=== PATIENT | female | born 1950 | race Caucasian/White ===

== ENCOUNTER 2016-06-28 14:09 | Outpatient (RCR) | payer MEDICARE, OTHER ==
--- OUTSIDE RECORDS SUMMARY | 2016-04-26 15:02 | XMS REPORT | Continuity of Care Document ---
Author Author [facility] Organization [facility] Address Unknown Phone Unavailable Support Name Relationship Address Phone LUIS DANIEL GÓMEZ MD Caregiver [facility] [address] [place] [address] LILLI WYNN MD Caregiver [facility] [address] [place] [address] [place] [address] Insurance Providers Payer Name Policy Number Subscriber Name Relationship Self Pay Pending Dariana Apprv [id number] Darya Bella 18 Self / Same As Patient Advance Directives Directive Response Recorded Date/Time Advance Directives No 08/27/11 9:15am Organ Donor Yes 08/27/11 9:15am Problems No known problems or medical conditions. Medications Medication Dose Route Sig Days/Qty Instructions Order Date Discontinued Date Status Meloxicam 7.5 Mg PO DAILY 08/27/11 Active Hydroxyurea 500 Mg PO DAILY 08/27/11 Active Tetracycline Hcl 250 Mg PO DAILY 08/27/11 Active [Triamterene] PO DAILY 08/27/11 Active Social History Social History Problem Response Recorded Date/Time Recent Foreign Travel [place] 09/07/2014 3:27pm Hospital Discharge Instructions No hospital discharge instructions. Plan of Care No plan of care. Functional Status No functional status results. Allergies, Adverse Reactions, Alerts Allergen Type Severity Reaction Status Last Updated tetracycline ([id number]) Allergy Mild Active 10/03/05 Immunizations No immunization records. Vital Signs No known vital signs results. Results Laboratory Results Test Name Result Units Flags Reference Collection Date/Time Result Date/ Time Comments White Blood Count 5.4 10^3/uL 4.3-11.0 11/29/2014 3:00pm 11/29/2014 3: 08pm Red Blood Count 4.24 10^6/uL L 4.35-5.85 11/29/2014 3:00pm 11/29/2014 3: 08pm Hemoglobin 15.4 G/DL 11.5-16.0 11/29/2014 3:00pm 11/29/2014 3:08pm Hematocrit 43 % 35-52 11/29/2014 3:00pm 11/29/2014 3:08pm Mean Corpuscular Volume 102 FL H 80-99 11/29/2014 3:00pm 11/29/2014 3: 08pm Mean Corpuscular Hemoglobin 36 PG H 25-34 11/29/2014 3:00pm 11/29/2014 3: 08pm Mean Corpuscular Hemoglobin Concent 36 G/DL 32-36 11/29/2014 3:00pm 01/2015 3:08pm Red Cell Distribution Width 14.3 % 10.0-14.5 11/29/2014 3:00pm 2014 3:08pm Platelet Count 318 10^3/uL 130-400 11/29/2014 3:00pm 11/29/2014 3:08pm Mean Platelet Volume 8.4 FL 7.4-10.4 11/29/2014 3:00pm 11/29/2014 3: 08pm Neutrophils (%) (Auto) 51 % 42-75 11/29/2014 3:00pm 11/29/2014 3:08pm Lymphocytes (%) (Auto) 35 % 12-44 11/29/2014 3:00pm 11/29/2014 3:08pm Monocytes (%) (Auto) 9 % 0-12 11/29/2014 3:00pm 11/29/2014 3:08pm Eosinophils (%) (Auto) 3 % 0-10 11/29/2014 3:00pm 11/29/2014 3:08pm Basophils (%) (Auto) 1 % 0-10 11/29/2014 3:00pm 11/29/2014 3:08pm Neutrophils # (Auto) 2.8 X 10^3 1.8-7.8 11/29/2014 3:00pm 11/29/2014 3: 08pm Lymphocytes # (Auto) 1.9 X 10^3 1.0-4.0 11/29/2014 3:00pm 11/29/2014 3: 08pm Monocytes # (Auto) 0.5 X 10^3 0.0-1.0 11/29/2014 3:00pm 11/29/2014 3: 08pm Eosinophils # (Auto) 0.2 10^3/uL 0.0-0.3 11/29/2014 3:00pm 11/29/2014 3 :08pm Basophils # (Auto) 0.1 10^3/uL 0.0-0.1 11/29/2014 3:00pm 11/29/2014 3: 08pm Sodium Level 140 MMOL/L 135-145 11/29/2014 3:00pm 11/29/2014 3:35pm Potassium Level 4.0 MMOL/L 3.6-5.0 11/29/2014 3:00pm 11/29/2014 3:35pm Chloride Level 105 MMOL/L 98-107 11/29/2014 3:00pm 11/29/2014 3:35pm Carbon Dioxide Level 25 MMOL/L 21-32 11/29/2014 3:00pm 11/29/2014 3: 35pm Blood Urea Nitrogen 24 MG/DL H 7-18 11/29/2014 3:00pm 11/29/2014 3:35pm Creatinine 1.10 MG/DL 0.60-1.30 11/29/2014 3:00pm 11/29/2014 3:35pm BUN/Creatinine Ratio 22 11/29/2014 3:00pm 11/29/2014 3:35pm Estimat Glomerular Filtration Rate 50 11/29/2014 3:00pm 11/29/2014 3:35pm GFR INTERPRETIVE DATA UNITS FOR ESTIMATED GFR (eGFR): mL/min/1.73 M2 REFERENCE RANGE FOR ESTIMATED GFR (eGFR) eGFR NORMAL eGFR >60 MODERATELY DECREASED eGFR 30-59 SEVERLY DECREASED eGFR 15-29 KIDNEY FAILURE <15 (OR DIALYSIS) Glucose Level 120 MG/DL H 70-105 11/29/2014 3:00pm 11/29/2014 3:35pm Calcium Level 9.8 MG/DL 8.5-10.1 11/29/2014 3:00pm 11/29/2014 3:35pm Total Bilirubin 0.6 MG/DL 0.1-1.0 11/29/2014 3:00pm 11/29/2014 3:35pm Alkaline Phosphatase 72 U/L 40-136 11/29/2014 3:00pm 11/29/2014 3:35pm Aspartate Amino Transf (AST/SGOT) 41 U/L H 5-34 11/29/2014 3:00pm 2014 3:35pm Alanine Aminotransferase (ALT/SGPT) 34 U/L 0-55 11/29/2014 3:00pm 11/29 3:35pm Lactate Dehydrogenase 304 U/L H 125-220 11/29/2014 3:00pm 11/29/2014 3: 35pm Total Protein 8.1 G/DL 6.4-8.2 11/29/2014 3:00pm 11/29/2014 3:35pm Albumin 4.3 G/DL 3.2-4.5 11/29/2014 3:00pm 11/29/2014 3:35pm Procedures No known history of procedures. Encounters Encounter Location Date/Time Discharged Recurring [facility] 11/29/14 2:52pm
[2016-04-26 15:09] LABS: BASOPHILS # (AUTO) 0.1 10^3/uL (0.0-0.1); BASOPHILS % (AUTO) 1 % (0-10); EOSINOPHILS # (AUTO) 0.1 10^3/uL (0.0-0.3); EOSINOPHILS % (AUTO) 3 % (0-10); LYMPHOCYTES # (AUTO) 1.8 X 10^3 (1.0-4.0); LYMPHOCYTES % (AUTO) 35 % (12-44); MEAN CORPUSCULAR HEMOGLOBIN 37 PG (25-34); MEAN CORPUSCULAR HGB CONC 36 G/DL (32-36); MEAN CORPUSCULAR VOLUME 104 FL (80-99); MEAN PLATELET VOLUME 8.4 FL (7.4-10.4); MONOCYTES # (AUTO) 0.5 X 10^3 (0.0-1.0); MONOCYTES % (AUTO) 11 % (0-12); NEUTROPHILS # (AUTO) 2.5 X 10^3 (1.8-7.8); NEUTROPHILS % (AUTO) 50 % (42-75); PLATELET COUNT 289 10^3/uL (130-400); RED BLOOD COUNT 4.06 10^6/uL (4.35-5.85); RED CELL DISTRIBUTION WIDTH 14.1 % (10.0-14.5)
[2016-04-26 15:39] LABS: ALBUMIN 4.3 G/DL (3.2-4.5); BILIRUBIN,TOTAL 0.7 MG/DL (0.1-1.0); CALCIUM 9.6 MG/DL (8.5-10.1); CREATININE SERUM 1.09 MG/DL (0.60-1.30); POTASSIUM 4.3 MMOL/L (3.6-5.0); TOTAL PROTEIN 7.3 G/DL (6.4-8.2)
[~2016-06-28 14:09] MED LIST: CYCL10TA9 PO; HYDR500C PO; MELO7.5T PO; METH4TAB PO; TETR250C3 PO; TRAM-42 PO; TRAM50TA2 PO; TRIAMTERENE PO; [UNRECOGNIZED DRUG - CODE] PO
[2016-06-28 14:39] LABS: BASOPHILS # (AUTO) 0.1 10^3/uL (0.0-0.1); BASOPHILS % (AUTO) 1 % (0-10); EOSINOPHILS # (AUTO) 0.1 10^3/uL (0.0-0.3); EOSINOPHILS % (AUTO) 3 % (0-10); LYMPHOCYTES # (AUTO) 1.7 X 10^3 (1.0-4.0); LYMPHOCYTES % (AUTO) 35 % (12-44); MEAN CORPUSCULAR HEMOGLOBIN 36 PG (25-34); MEAN CORPUSCULAR HGB CONC 35 G/DL (32-36); MEAN CORPUSCULAR VOLUME 104 FL (80-99); MEAN PLATELET VOLUME 8.3 FL (7.4-10.4); MONOCYTES # (AUTO) 0.5 X 10^3 (0.0-1.0); MONOCYTES % (AUTO) 9 % (0-12); NEUTROPHILS # (AUTO) 2.6 X 10^3 (1.8-7.8); NEUTROPHILS % (AUTO) 53 % (42-75); PLATELET COUNT 266 10^3/uL (130-400); RED BLOOD COUNT 3.88 10^6/uL (4.35-5.85); RED CELL DISTRIBUTION WIDTH 14.8 % (10.0-14.5); WHITE BLOOD COUNT 4.9 10^3/uL (4.3-11.0)
[2016-06-28 15:00] LABS: BILIRUBIN,TOTAL 0.5 MG/DL (0.1-1.0); CALCIUM 8.9 MG/DL (8.5-10.1); POTASSIUM 4.2 MMOL/L (3.6-5.0); TOTAL PROTEIN 6.7 G/DL (6.4-8.2)
== END 2016-07-25 | disposition home or self-care (01) ==
LOC: ONC 14:09
PROVIDERS: ATTEND Internal Medicine Hematology & Oncology
DX: D45 Polycythemia vera (principal); I10 Essential (primary) hypertension; J32.9 Chronic sinusitis, unspecified; Z87.891 Personal history of nicotine dependence; Z79.899 Other long term (current) drug therapy
CPT/HCPCS: 36415; 80053; 82232; 83615; 85025; 99213

== ENCOUNTER 2016-11-01 12:34 | Outpatient (RCR) | payer MEDICARE, OTHER ==
--- OUTSIDE RECORDS SUMMARY | 2016-08-30 14:04 | XMS REPORT | Continuity of Care Document ---
Author Author [facility] Organization [facility] Address Unknown Phone Unavailable Care Team Providers [facility] Nurse Name Role Phone VALENTINA KARIMI MD PCP Insurance Providers Payer Name Policy Number Subscriber Name Relationship [employer] [id number] Darya Bella 18 Self / Same As Patient Self Pay Pending [facility] Apprv [id number] Darya Bella 18 Self / Same As Patient Advance Directives Directive Response Recorded Date/Time Advance Directives No 05/15/16 3:07pm Organ Donor Yes 05/15/16 3:07pm Resuscitation Status Full Code 05/15/16 3:07pm Chief Complaint and Reason for Visit Chief Complaint Upper Extremity Reason for Visit Muscle strain of left forearm Hypertension Problems Active Problems Medical Problem Onset Date Status Hypertension Unknown Acute Lateral epicondylitis Unknown Acute Muscle strain of left forearm Unknown Acute Medications Current Home Medications Medication Dose Units Route Directions Days/Qty Instructions Start Date Meloxicam 7.5 Mg 7.5 Mg Oral Daily 08/27/11 Hydroxyurea 500 Mg 500 Mg Oral Daily 08/27/11 [Triamterene] Oral Daily 08/27/11 Codeine/Butalbital/Asa/Caffein 1 Each 1 Each Oral As Needed 09/14/15 Cyclobenzaprine Hcl 10 Mg 10 Mg Oral Every 8HRS 15 09/14/15 Tramadol Hcl 50 Mg 50 Mg Oral Every 4HRS 20 09/14/15 Tramadol Hcl 50 Mg 50 Mg Oral Every 4HRS as needed for Pain 20 Cyclobenzaprine Hcl 10 Mg 10 Mg Oral Every 8HRS as needed for Spasms 10 05/15/16 Past Home Medications Medication Directions Ordered Status Tetracycline Hcl 250 Mg Capsule, 250 Mg Oral Daily 08/27/11 Discontinued Methylprednisolone 4 Mg Tab.ds.pk, 4 Mg Oral As Directed 09/06/15 Discontinued Social History Social History Problem Response Recorded Date/Time Alcohol Use Rarely Uses 09/14/2015 4:26pm Recreational Drug Use No 09/14/2015 4:26pm Recent Foreign Travel No 05/15/2016 3:03pm Recent Infectious Disease Exposure No 05/15/2016 3:03pm Hospitalization with Isolation Denies 05/15/2016 3:03pm Smoking Status Never a Smoker 05/15/2016 3:07pm Do you dip or chew tobacco? No 09/14/2015 4:26pm Recent Hopitalizations No 05/15/2016 3:07pm Hospitalization with Isolation Denies 05/15/2016 3:03pm Query Response Start Date Stop Date Smoking Status Never a Smoker 08/22/2008 Hospital Discharge Instructions No hospital discharge instructions. Plan of Care Discharge Date 05/15/16 4:40pm Disposition 01 HOME, SELF-CARE Condition at Discharge Improved Instructions/Education Provided Muscle Strain (DC) Prescriptions See Medication Section Referrals VALENTINA KARIMI MD - Primary Care Physician Additional Instructions/Education All discharge instructions reviewed with patient and/or family. Voiced understanding. Medications as instructed. Tylenol extra strength [id number] as directed for pain. Ibuprofen 800 mg by mouth every 8 hours as needed for pain. Elevate the left forearm on pillows. Ice pack for 20 minute intervals 6 times daily for 3 days. Then heating pad or pack as needed for pain. Activity as tolerated. Follow-up with your family practitioner for recheck of blood pressure. Call tomorrow for appointment time. Return to the emergency department for worsened symptoms or any other concerns. Functional Status No functional status results. Allergies, Adverse Reactions, Alerts Allergen Type Severity Reaction Status Last Updated tetracycline ([id number]) Allergy Mild Active 10/03/05 Immunizations No immunization records. Vital Signs Acute Vital Signs Vital Response Date/Time Temperature (Fahrenheit) 97.5 degrees F (97.6 - 99.5) 05/15/2016 4:32pm Temperature (Calculated Celsius) 36.26665 degrees C (36.4 - 37.5) 05/15/2016 4:32pm Temperature Source Temporal 05/15/2016 4:32pm Pulse Rate (adult) 70 bpm (60 - 90) 05/15/2016 3:03pm Respiratory Rate 16 bpm (12 - 24) 05/15/2016 3:03pm O2 Sat by Pulse Oximetry 98 % (88 - 100) 05/15/2016 3:03pm Blood Pressure 172/116 mm Hg 05/15/2016 3:03pm Blood Pressure Mean 134 mm Hg 05/15/2016 3:03pm Pain Numeric Pain Scale 5-Moderate Pain 05/15/2016 4:32pm Height (Feet) 5 feet 05/15/2016 3:03pm Height (Inches) 2 inches 05/15/2016 3:03pm Height (Calculated Centimeters) 157.413431 cm 05/15/2016 3:03pm Weight (Pounds) 160 pounds 05/15/2016 3:03pm Weight (Calculated Kilograms) 72.292413 kilograms 05/15/2016 3:03pm Capillary Refill Capillary Refill Less Than 3 Seconds 05/15/2016 3:03pm Height 5 ft 2 in Weight 160 lb Body Mass Index 29.3 kg/m^2 Results Laboratory Results Test Name Result Units Flags Reference Collection Date/Time Result Date/ Time Comments White Blood Count 5.0 10^3/uL 4.3-11.0 04/26/2016 3:06pm 04/26/2016 3: 10pm Red Blood Count 4.06 10^6/uL L 4.35-5.85 04/26/2016 3:06pm 04/26/2016 3: 10pm Hemoglobin 15.1 G/DL 11.5-16.0 04/26/2016 3:06pm 04/26/2016 3:10pm Hematocrit 42 % 35-52 04/26/2016 3:06pm 04/26/2016 3:10pm Mean Corpuscular Volume 104 FL H 80-99 04/26/2016 3:06pm 04/26/2016 3: 10pm Mean Corpuscular Hemoglobin 37 PG H 25-34 04/26/2016 3:06pm 04/26/2016 3: 10pm Mean Corpuscular Hemoglobin Concent 36 G/DL 32-36 04/26/2016 3:06pm 08/2015 3:10pm Red Cell Distribution Width 14.1 % 10.0-14.5 04/26/2016 3:06pm 2015 3:10pm Platelet Count 289 10^3/uL 130-400 04/26/2016 3:06pm 04/26/2016 3:10pm Mean Platelet Volume 8.4 FL 7.4-10.4 04/26/2016 3:06pm 04/26/2016 3: 10pm Neutrophils (%) (Auto) 50 % 42-75 04/26/2016 3:06pm 04/26/2016 3:10pm Lymphocytes (%) (Auto) 35 % 12-44 04/26/2016 3:06pm 04/26/2016 3:10pm Monocytes (%) (Auto) 11 % 0-12 04/26/2016 3:06pm 04/26/2016 3:10pm Eosinophils (%) (Auto) 3 % 0-10 04/26/2016 3:06pm 04/26/2016 3:10pm Basophils (%) (Auto) 1 % 0-10 04/26/2016 3:06pm 04/26/2016 3:10pm Neutrophils # (Auto) 2.5 X 10^3 1.8-7.8 04/26/2016 3:06pm 04/26/2016 3: 10pm Lymphocytes # (Auto) 1.8 X 10^3 1.0-4.0 04/26/2016 3:06pm 04/26/2016 3: 10pm Monocytes # (Auto) 0.5 X 10^3 0.0-1.0 04/26/2016 3:06pm 04/26/2016 3: 10pm Eosinophils # (Auto) 0.1 10^3/uL 0.0-0.3 04/26/2016 3:06pm 04/26/2016 3 :10pm Basophils # (Auto) 0.1 10^3/uL 0.0-0.1 04/26/2016 3:06pm 04/26/2016 3: 10pm Sodium Level 139 MMOL/L 135-145 04/26/2016 3:06pm 04/26/2016 3:41pm Potassium Level 4.3 MMOL/L 3.6-5.0 04/26/2016 3:06pm 04/26/2016 3:41pm Chloride Level 102 MMOL/L 98-107 04/26/2016 3:06pm 04/26/2016 3:41pm Carbon Dioxide Level 29 MMOL/L 21-32 04/26/2016 3:06pm 04/26/2016 3: 41pm Anion Gap 8 MMOL/L 5-14 04/26/2016 3:06pm 04/26/2016 3:41pm Blood Urea Nitrogen 26 MG/DL H 7-18 04/26/2016 3:06pm 04/26/2016 3:41pm Creatinine 1.09 MG/DL 0.60-1.30 04/26/2016 3:06pm 04/26/2016 3:41pm BUN/Creatinine Ratio 24 04/26/2016 3:06pm 04/26/2016 3:41pm Estimat Glomerular Filtration Rate 50 04/26/2016 3:06pm 04/26/2016 3:41pm GFR INTERPRETIVE DATA UNITS FOR ESTIMATED GFR (eGFR): mL/min/1.73 M2 REFERENCE RANGE FOR ESTIMATED GFR (eGFR) eGFR NORMAL eGFR >60 MODERATELY DECREASED eGFR 30-59 SEVERLY DECREASED eGFR 15-29 KIDNEY FAILURE <15 (OR DIALYSIS) Glucose Level 116 MG/DL H 70-105 04/26/2016 3:06pm 04/26/2016 3:41pm Calcium Level 9.6 MG/DL 8.5-10.1 04/26/2016 3:06pm 04/26/2016 3:41pm Total Bilirubin 0.7 MG/DL 0.1-1.0 04/26/2016 3:06pm 04/26/2016 3:41pm Alkaline Phosphatase 71 U/L 40-136 04/26/2016 3:06pm 04/26/2016 3:41pm Aspartate Amino Transf (AST/SGOT) 29 U/L 5-34 04/26/2016 3:06pm 2015 3:41pm Alanine Aminotransferase (ALT/SGPT) 37 U/L 0-55 04/26/2016 3:06pm 04/26 3:41pm Lactate Dehydrogenase 294 U/L H 125-220 04/26/2016 3:06pm 04/26/2016 3: 41pm Total Protein 7.3 G/DL 6.4-8.2 04/26/2016 3:06pm 04/26/2016 3:41pm Albumin 4.3 G/DL 3.2-4.5 04/26/2016 3:06pm 04/26/2016 3:41pm Cvil-3-Zgxfpypzoosbj 2.93 mg/L H 0.00-1.85 04/26/2016 3:06pm 04/27/2016 7 :15am Test performed at [email or web address]] [facility] Lab, CLIA# [id number] [address] [facility] [place] [address] Procedures No known history of procedures. Encounters Encounter Location Arrival/Admit Date Discharge/Depart Date Attending Provider Departed Emergency Room [facility] 05/15/16 2:48pm 05/15 4:40pm KENNEDY CHANG Registered Clinic [facility] 05/04/16 1:17pm LUIS DANIEL GÓMEZ MD Registered Recurring [facility] 04/26/16 2:59pm LUIS DANIEL GÓMEZ MD Recent Diagnosis
[2016-08-30 14:07] LABS: BASOPHILS # (AUTO) 0.1 10^3/uL (0.0-0.1); BASOPHILS % (AUTO) 1 % (0-10); EOSINOPHILS # (AUTO) 0.3 10^3/uL (0.0-0.3); EOSINOPHILS % (AUTO) 5 % (0-10); LYMPHOCYTES # (AUTO) 1.5 X 10^3 (1.0-4.0); LYMPHOCYTES % (AUTO) 29 % (12-44); MEAN CORPUSCULAR HEMOGLOBIN 37 PG (25-34); MEAN CORPUSCULAR HGB CONC 37 G/DL (32-36); MEAN CORPUSCULAR VOLUME 101 FL (80-99); MEAN PLATELET VOLUME 8.4 FL (7.4-10.4); MONOCYTES # (AUTO) 0.6 X 10^3 (0.0-1.0); MONOCYTES % (AUTO) 12 % (0-12); NEUTROPHILS # (AUTO) 2.8 X 10^3 (1.8-7.8); NEUTROPHILS % (AUTO) 53 % (42-75); PLATELET COUNT 270 10^3/uL (130-400); RED BLOOD COUNT 4.05 10^6/uL (4.35-5.85); RED CELL DISTRIBUTION WIDTH 14.4 % (10.0-14.5); WHITE BLOOD COUNT 5.2 10^3/uL (4.3-11.0)
[2016-08-30 15:17] LABS: ALBUMIN 4.1 G/DL (3.2-4.5); BILIRUBIN,TOTAL 0.9 MG/DL (0.1-1.0); CALCIUM 9.3 MG/DL (8.5-10.1); CREATININE SERUM 0.97 MG/DL (0.60-1.30); POTASSIUM 3.6 MMOL/L (3.6-5.0); TOTAL PROTEIN 7.1 G/DL (6.4-8.2)
[2016-11-01 13:09] LABS: BASOPHILS # (AUTO) 0.1 10^3/uL (0.0-0.1); BASOPHILS % (AUTO) 1 % (0-10); EOSINOPHILS # (AUTO) 0.2 10^3/uL (0.0-0.3); EOSINOPHILS % (AUTO) 3 % (0-10); LYMPHOCYTES # (AUTO) 1.8 X 10^3 (1.0-4.0); LYMPHOCYTES % (AUTO) 37 % (12-44); MEAN CORPUSCULAR HEMOGLOBIN 36 PG (25-34); MEAN CORPUSCULAR HGB CONC 35 G/DL (32-36); MEAN CORPUSCULAR VOLUME 104 FL (80-99); MEAN PLATELET VOLUME 8.4 FL (7.4-10.4); MONOCYTES # (AUTO) 0.5 X 10^3 (0.0-1.0); MONOCYTES % (AUTO) 10 % (0-12); NEUTROPHILS # (AUTO) 2.3 X 10^3 (1.8-7.8); NEUTROPHILS % (AUTO) 48 % (42-75); PLATELET COUNT 289 10^3/uL (130-400); RED BLOOD COUNT 3.99 10^6/uL (4.35-5.85); RED CELL DISTRIBUTION WIDTH 14.4 % (10.0-14.5); WHITE BLOOD COUNT 4.8 10^3/uL (4.3-11.0)
[2016-11-01 14:07] LABS: ALBUMIN 3.9 G/DL (3.2-4.5); BILIRUBIN,TOTAL 0.8 MG/DL (0.1-1.0); CALCIUM 9.2 MG/DL (8.5-10.1); CREATININE SERUM 1.02 MG/DL (0.60-1.30); POTASSIUM 3.9 MMOL/L (3.6-5.0)
== END 2016-11-28 | disposition home or self-care (01) ==
LOC: ONC 12:34
PROVIDERS: ATTEND Internal Medicine Hematology & Oncology
DX: D45 Polycythemia vera (principal); I10 Essential (primary) hypertension; J32.9 Chronic sinusitis, unspecified; Z87.891 Personal history of nicotine dependence; Z79.899 Other long term (current) drug therapy
CPT/HCPCS: 36415; 80053; 83615; 85025; 99213

== ENCOUNTER 2017-01-03 14:13 | Outpatient (RCR) | payer MEDICARE, OTHER ==
[2017-01-03 14:16] LABS: BASOPHILS # (AUTO) 0.1 10^3/uL (0.0-0.1); BASOPHILS % (AUTO) 1 % (0-10); EOSINOPHILS # (AUTO) 0.1 10^3/uL (0.0-0.3); EOSINOPHILS % (AUTO) 3 % (0-10); LYMPHOCYTES # (AUTO) 1.8 X 10^3 (1.0-4.0); LYMPHOCYTES % (AUTO) 40 % (12-44); MEAN CORPUSCULAR HEMOGLOBIN 37 PG (25-34); MEAN CORPUSCULAR HGB CONC 35 G/DL (32-36); MEAN CORPUSCULAR VOLUME 105 FL (80-99); MEAN PLATELET VOLUME 8.6 FL (7.4-10.4); MONOCYTES # (AUTO) 0.5 X 10^3 (0.0-1.0); MONOCYTES % (AUTO) 10 % (0-12); NEUTROPHILS # (AUTO) 2.1 X 10^3 (1.8-7.8); NEUTROPHILS % (AUTO) 46 % (42-75); PLATELET COUNT 301 10^3/uL (130-400); RED BLOOD COUNT 3.83 10^6/uL (4.35-5.85); RED CELL DISTRIBUTION WIDTH 15.1 % (10.0-14.5); WHITE BLOOD COUNT 4.5 10^3/uL (4.3-11.0)
[2017-01-03 14:55] LABS: ALBUMIN 3.9 GM/DL (3.2-4.5); BILIRUBIN,TOTAL 0.7 MG/DL (0.1-1.0); CREATININE SERUM 1.1 MG/DL (0.60-1.30); POTASSIUM 3.8 MMOL/L (3.6-5.0); TOTAL PROTEIN 7.3 GM/DL (6.4-8.2)
== END 2017-02-20 09:37 | disposition home or self-care (01) ==
LOC: ONC 14:13
PROVIDERS: ATTEND Internal Medicine Hematology & Oncology
DX: D45 Polycythemia vera (principal); I10 Essential (primary) hypertension; J32.9 Chronic sinusitis, unspecified; Z87.891 Personal history of nicotine dependence; Z79.899 Other long term (current) drug therapy
CPT/HCPCS: 36415; 80053; 83615; 85025; 99213

== ENCOUNTER 2017-03-20 08:10 | Outpatient (RCR) | payer MEDICARE, OTHER ==
[2017-02-20 10:17] LABS: BASOPHILS # (AUTO) 0.1 10^3/uL (0.0-0.1); BASOPHILS % (AUTO) 2 % (0-10); EOSINOPHILS # (AUTO) 0.1 10^3/uL (0.0-0.3); EOSINOPHILS % (AUTO) 2 % (0-10); LYMPHOCYTES # (AUTO) 1.9 X 10^3 (1.0-4.0); LYMPHOCYTES % (AUTO) 38 % (12-44); MEAN CORPUSCULAR HEMOGLOBIN 38 PG (25-34); MEAN CORPUSCULAR HGB CONC 36 G/DL (32-36); MEAN CORPUSCULAR VOLUME 104 FL (80-99); MEAN PLATELET VOLUME 8.9 FL (7.4-10.4); MONOCYTES # (AUTO) 0.5 X 10^3 (0.0-1.0); MONOCYTES % (AUTO) 10 % (0-12); NEUTROPHILS # (AUTO) 2.4 X 10^3 (1.8-7.8); NEUTROPHILS % (AUTO) 48 % (42-75); PLATELET COUNT 291 10^3/uL (130-400); RED BLOOD COUNT 4.02 10^6/uL (4.35-5.85); WHITE BLOOD COUNT 4.9 10^3/uL (4.3-11.0)
[2017-02-20 10:29] LABS: ALBUMIN 4.2 GM/DL (3.2-4.5); CALCIUM 9.3 MG/DL (8.5-10.1); CREATININE SERUM 1.12 MG/DL (0.60-1.30); POTASSIUM 4.3 MMOL/L (3.6-5.0); TOTAL PROTEIN 7.5 GM/DL (6.4-8.2)
[2017-03-20 08:28] LABS: BASOPHILS # (AUTO) 0.1 10^3/uL (0.0-0.1); BASOPHILS % (AUTO) 1 % (0-10); EOSINOPHILS # (AUTO) 0.1 10^3/uL (0.0-0.3); EOSINOPHILS % (AUTO) 2 % (0-10); LYMPHOCYTES # (AUTO) 1.5 X 10^3 (1.0-4.0); LYMPHOCYTES % (AUTO) 35 % (12-44); MEAN CORPUSCULAR HEMOGLOBIN 37 PG (25-34); MEAN CORPUSCULAR HGB CONC 35 G/DL (32-36); MEAN CORPUSCULAR VOLUME 105 FL (80-99); MEAN PLATELET VOLUME 8.8 FL (7.4-10.4); MONOCYTES # (AUTO) 0.4 X 10^3 (0.0-1.0); MONOCYTES % (AUTO) 10 % (0-12); NEUTROPHILS # (AUTO) 2.2 X 10^3 (1.8-7.8); NEUTROPHILS % (AUTO) 52 % (42-75); PLATELET COUNT 243 10^3/uL (130-400); RED BLOOD COUNT 4.04 10^6/uL (4.35-5.85); RED CELL DISTRIBUTION WIDTH 14.1 % (10.0-14.5); WHITE BLOOD COUNT 4.3 10^3/uL (4.3-11.0)
[2017-03-20 08:47] LABS: CALCIUM 9.6 MG/DL (8.5-10.1); CREATININE SERUM 1.02 MG/DL (0.60-1.30); POTASSIUM 4.7 MMOL/L (3.6-5.0)
== END 2017-03-23 | disposition home or self-care (01) ==
LOC: ONC 08:10
PROVIDERS: ATTEND Internal Medicine Hematology & Oncology
DX: D45 Polycythemia vera (principal); I10 Essential (primary) hypertension; J32.9 Chronic sinusitis, unspecified; Z87.891 Personal history of nicotine dependence; Z79.899 Other long term (current) drug therapy
CPT/HCPCS: 36415; 80048; 80053; 83615; 85025; 99213

== ENCOUNTER 2017-04-12 15:38 | Outpatient (RCR) | payer MEDICARE, OTHER ==
[2017-04-12 15:57] LABS: BASOPHILS # (AUTO) 0.1 10^3/uL (0.0-0.1); BASOPHILS % (AUTO) 1 % (0-10); EOSINOPHILS # (AUTO) 0.1 10^3/uL (0.0-0.3); EOSINOPHILS % (AUTO) 2 % (0-10); LYMPHOCYTES # (AUTO) 2.1 X 10^3 (1.0-4.0); LYMPHOCYTES % (AUTO) 39 % (12-44); MEAN CORPUSCULAR HEMOGLOBIN 37 PG (25-34); MEAN CORPUSCULAR HGB CONC 35 G/DL (32-36); MEAN CORPUSCULAR VOLUME 105 FL (80-99); MEAN PLATELET VOLUME 8.8 FL (7.4-10.4); MONOCYTES # (AUTO) 0.5 X 10^3 (0.0-1.0); MONOCYTES % (AUTO) 10 % (0-12); NEUTROPHILS # (AUTO) 2.6 X 10^3 (1.8-7.8); NEUTROPHILS % (AUTO) 48 % (42-75); PLATELET COUNT 260 10^3/uL (130-400); RED BLOOD COUNT 3.92 10^6/uL (4.35-5.85); RED CELL DISTRIBUTION WIDTH 14.2 % (10.0-14.5); WHITE BLOOD COUNT 5.4 10^3/uL (4.3-11.0)
[2017-04-12 16:17] LABS: ALBUMIN 3.9 GM/DL (3.2-4.5); BILIRUBIN,TOTAL 0.5 MG/DL (0.1-1.0); CALCIUM 8.9 MG/DL (8.5-10.1); CREATININE SERUM 0.95 MG/DL (0.60-1.30); TOTAL PROTEIN 7.4 GM/DL (6.4-8.2)
[2017-04-12 16:24] LABS: POTASSIUM 4.1 MMOL/L (3.6-5.0)
== END 2017-06-13 11:23 | disposition home or self-care (01) ==
LOC: ONC 15:38
PROVIDERS: ATTEND Internal Medicine Hematology & Oncology
DX: D45 Polycythemia vera (principal); I10 Essential (primary) hypertension; J32.9 Chronic sinusitis, unspecified; Z87.891 Personal history of nicotine dependence; Z79.899 Other long term (current) drug therapy
CPT/HCPCS: 36415; 80053; 83615; 85025; 99213

== ENCOUNTER 2017-08-22 14:33 | Outpatient (RCR) | payer MEDICARE, OTHER ==
[2017-06-13 15:11] LABS: BASOPHILS # (AUTO) 0.1 10^3/uL (0.0-0.1); BASOPHILS % (AUTO) 1 % (0-10); EOSINOPHILS # (AUTO) 0.1 10^3/uL (0.0-0.3); EOSINOPHILS % (AUTO) 2 % (0-10); HEMATOCRIT 39 % (35-52); HEMOGLOBIN 13.7 G/DL (11.5-16.0); LYMPHOCYTES % (AUTO) 43 % (12-44); MEAN CORPUSCULAR HEMOGLOBIN 37 PG (25-34); MEAN CORPUSCULAR HGB CONC 35 G/DL (32-36); MEAN CORPUSCULAR VOLUME 107 FL (80-99); MEAN PLATELET VOLUME 8.4 FL (7.4-10.4); MONOCYTES # (AUTO) 0.5 X 10^3 (0.0-1.0); MONOCYTES % (AUTO) 10 % (0-12); NEUTROPHILS % (AUTO) 43 % (42-75); PLATELET COUNT 257 10^3/uL (130-400); RED CELL DISTRIBUTION WIDTH 14.2 % (10.0-14.5); WHITE BLOOD COUNT 4.7 10^3/uL (4.3-11.0)
[2017-06-13 15:28] LABS: ALBUMIN 3.9 GM/DL (3.2-4.5); BILIRUBIN,TOTAL 0.7 MG/DL (0.1-1.0); CREATININE SERUM 1.25 MG/DL (0.60-1.30); POTASSIUM 4.6 MMOL/L (3.6-5.0); TOTAL PROTEIN 7.1 GM/DL (6.4-8.2)
[2017-08-22 14:51] LABS: BASOPHILS # (AUTO) 0.1 10^3/uL (0.0-0.1); BASOPHILS % (AUTO) 1 % (0-10); EOSINOPHILS # (AUTO) 0.1 10^3/uL (0.0-0.3); EOSINOPHILS % (AUTO) 3 % (0-10); HEMATOCRIT 38 % (35-52); HEMOGLOBIN 13.7 G/DL (11.5-16.0); LYMPHOCYTES # (AUTO) 1.8 X 10^3 (1.0-4.0); LYMPHOCYTES % (AUTO) 40 % (12-44); MEAN CORPUSCULAR HEMOGLOBIN 38 PG (25-34); MEAN CORPUSCULAR HGB CONC 36 G/DL (32-36); MEAN CORPUSCULAR VOLUME 107 FL (80-99); MEAN PLATELET VOLUME 8.8 FL (7.4-10.4); MONOCYTES # (AUTO) 0.4 X 10^3 (0.0-1.0); MONOCYTES % (AUTO) 9 % (0-12); NEUTROPHILS # (AUTO) 2.2 X 10^3 (1.8-7.8); NEUTROPHILS % (AUTO) 47 % (42-75); PLATELET COUNT 328 10^3/uL (130-400); RED BLOOD COUNT 3.58 10^6/uL (4.35-5.85); WHITE BLOOD COUNT 4.6 10^3/uL (4.3-11.0)
[2017-08-22 15:10] LABS: ALBUMIN 4.1 GM/DL (3.2-4.5); BILIRUBIN,TOTAL 0.6 MG/DL (0.1-1.0); CALCIUM 9.3 MG/DL (8.5-10.1); CREATININE SERUM 1.06 MG/DL (0.60-1.30); POTASSIUM 3.9 MMOL/L (3.6-5.0); TOTAL PROTEIN 7.6 GM/DL (6.4-8.2)
== END 2017-09-11 | disposition home or self-care (01) ==
LOC: ONC 14:33
PROVIDERS: ATTEND Nurse Practitioner Adult Health
DX: D45 Polycythemia vera (principal); I10 Essential (primary) hypertension; J32.9 Chronic sinusitis, unspecified; Z87.891 Personal history of nicotine dependence; Z79.899 Other long term (current) drug therapy
CPT/HCPCS: 36415; 80053; 83615; 85025; 99213

== ENCOUNTER → 2017-08-29 | Outpatient (CLI) | payer MEDICARE ==
--- NOTE | 2017-08-29 20:01 | Diagnostic Imaging Report ---
INDICATION: Routine screening. The current study was also evaluated with a Computer Aided Detection (CAD) system. Comparison is made with prior exams from 05/04/2016 and 01/27/2015. FINDINGS: Scattered fibroglandular densities are identified bilaterally. The parenchymal pattern is stable. No dominant mass or malignant-appearing microcalcifications are seen. The axillae are unremarkable. IMPRESSION: No mammographic features suspicious for malignancy are identified. ACR BI-RADS Category 1: Negative. Result letter will be mailed to the patient. Note: At least 10% of breast cancer is not imaged by mammography. Dictated by: Dictated on workstation # [id number]
== END ==
LOC: RAD 11:24
PROVIDERS: ATTEND Nurse Practitioner Adult Health
DX: Z12.31 Encounter for screening mammogram for malignant neoplasm of breast (principal)
CPT/HCPCS: 77067

== ENCOUNTER → 2018-03-13 | Outpatient (CLI) | payer MEDICARE, OTHER ==
[2018-03-13 15:23] LABS: BASOPHILS # (AUTO) 0.1 10^3/uL (0.0-0.1); BASOPHILS % (AUTO) 2 % (0-10); EOSINOPHILS # (AUTO) 0.2 10^3/uL (0.0-0.3); EOSINOPHILS % (AUTO) 3 % (0-10); HEMATOCRIT 36 % (35-52); HEMOGLOBIN 13.4 G/DL (11.5-16.0); LYMPHOCYTES # (AUTO) 1.8 X 10^3 (1.0-4.0); LYMPHOCYTES % (AUTO) 39 % (12-44); MEAN CORPUSCULAR HEMOGLOBIN 40 PG (25-34); MEAN CORPUSCULAR HGB CONC 38 G/DL (32-36); MEAN CORPUSCULAR VOLUME 105 FL (80-99); MEAN PLATELET VOLUME 8.5 FL (7.4-10.4); MONOCYTES # (AUTO) 0.5 X 10^3 (0.0-1.0); MONOCYTES % (AUTO) 10 % (0-12); NEUTROPHILS # (AUTO) 2.1 X 10^3 (1.8-7.8); NEUTROPHILS % (AUTO) 46 % (42-75); PLATELET COUNT 250 10^3/uL (130-400); RED BLOOD COUNT 3.39 10^6/uL (4.35-5.85); WHITE BLOOD COUNT 4.6 10^3/uL (4.3-11.0)
[2018-03-13 15:42] LABS: ALANINE AMINOTRANSFERASE 28 U/L (0-55); ALBUMIN 4.1 GM/DL (3.2-4.5); ALKALINE PHOSPHATASE 66 U/L (40-136); BILIRUBIN,TOTAL 0.7 MG/DL (0.1-1.0); BUN/CREATININE RATIO 33; CALCIUM 9.2 MG/DL (8.5-10.1); CARBON DIOXIDE 24 MMOL/L (21-32); CHLORIDE 108 MMOL/L (98-107); CREATININE SERUM 0.84 MG/DL (0.60-1.30); GFR ESTIMATED > 60; GLUCOSE 98 MG/DL (70-105); POTASSIUM 4.3 MMOL/L (3.6-5.0); SODIUM 140 MMOL/L (135-145); TOTAL PROTEIN 7.2 GM/DL (6.4-8.2)
== END ==
LOC: EDSTATUS 02-20 16:21 → ONC 15:16
PROVIDERS: ATTEND Internal Medicine Hematology & Oncology
DX: D45 Polycythemia vera (principal); I10 Essential (primary) hypertension; J32.9 Chronic sinusitis, unspecified; Z87.891 Personal history of nicotine dependence; Z79.899 Other long term (current) drug therapy
CPT/HCPCS: 36415; 80053; 83615; 85025; 99213

== ENCOUNTER 2018-06-27 19:49 | Emergency (ER) | payer MEDICARE | END 2018-06-27 20:37 | disposition home or self-care (01) | LOC: ER 19:49 ==

== ENCOUNTER → 2018-07-10 | Outpatient (CLI) | payer MEDICARE ==
[~2018-07-10] MED LIST changes: +AMLO2.5T3 PO; +FEXO1TAB43
== END ==
LOC: ONC 16:02
PROVIDERS: ATTEND Internal Medicine Hematology & Oncology
DX: D45 Polycythemia vera (principal); I10 Essential (primary) hypertension; Z87.891 Personal history of nicotine dependence; Z79.899 Other long term (current) drug therapy
CPT/HCPCS: 99213

== ENCOUNTER → 2018-09-04 | Outpatient (CLI) | payer MEDICARE ==
[~2018-09-04] MED LIST changes: -AMLO2.5T3 PO; +AMLO2.5T4 PO
[2018-09-04 08:07] LABS: BASOPHILS # (AUTO) 0.1 10^3/uL (0.0-0.1); BASOPHILS % (AUTO) 2 % (0-10); EOSINOPHILS # (AUTO) 0.1 10^3/uL (0.0-0.3); EOSINOPHILS % (AUTO) 2 % (0-10); HEMATOCRIT 39 % (35-52); HEMOGLOBIN 13.8 G/DL (11.5-16.0); LYMPHOCYTES # (AUTO) 1.3 X 10^3 (1.0-4.0); LYMPHOCYTES % (AUTO) 40 % (12-44); MEAN CORPUSCULAR HEMOGLOBIN 38 PG (25-34); MEAN CORPUSCULAR HGB CONC 35 G/DL (32-36); MEAN CORPUSCULAR VOLUME 107 FL (80-99); MEAN PLATELET VOLUME 8.7 FL (7.4-10.4); MONOCYTES # (AUTO) 0.3 X 10^3 (0.0-1.0); MONOCYTES % (AUTO) 11 % (0-12); NEUTROPHILS # (AUTO) 1.4 X 10^3 (1.8-7.8); NEUTROPHILS % (AUTO) 45 % (42-75); PLATELET COUNT 251 10^3/uL (130-400); RED CELL DISTRIBUTION WIDTH 13.7 % (10.0-14.5); WHITE BLOOD COUNT 3.1 10^3/uL (4.3-11.0)
== END ==
LOC: RAD 07:52
PROVIDERS: ATTEND Internal Medicine Hematology & Oncology
DX: Z12.31 Encounter for screening mammogram for malignant neoplasm of breast (principal)
CPT/HCPCS: 36415; 85025

== ENCOUNTER → 2018-11-06 | Outpatient (CLI) | payer MEDICARE | LOC: ONC 15:08 | PROVIDERS: ATTEND Internal Medicine Hematology & Oncology | DX: D45 Polycythemia vera (principal); I12.9 Hypertensive chronic kidney disease with stage 1 through stage 4 chronic kidney disease, or unspecified chronic kidney disease; N18.3 Chronic kidney disease, stage 3 (moderate); J45.909 Unspecified asthma, uncomplicated; Z87.891 Personal history of nicotine dependence; Z79.899 Other long term (current) drug therapy | CPT/HCPCS: 99213 ==

== ENCOUNTER → 2018-11-11 | Outpatient (CLI) | payer MEDICARE ==
--- NOTE | 2018-11-11 16:37 | Diagnostic Imaging Report ---
INDICATION: Routine screening. COMPARISON: Comparison is made with prior mammograms from 08/29/2017 and 05/04/2016. TECHNIQUE: 2-D and 3-D bilateral screening mammography was performed with Computer Aided Detection (CAD) system. FINDINGS: Scattered fibroglandular densities are identified bilaterally. The parenchymal pattern appears to be stable. No mass or malignant-appearing microcalcifications are seen. Axillae are unremarkable. IMPRESSION: No mammographic features suspicious for malignancy are identified. ACR BI-RADS Category 1: Negative. Result letter will be mailed to the patient. Note: At least 10% of breast cancer is not imaged by mammography. Dictated by: Dictated on workstation # [id number]
== END ==
LOC: RAD 15:07
PROVIDERS: ATTEND Internal Medicine Hematology & Oncology
DX: Z12.31 Encounter for screening mammogram for malignant neoplasm of breast (principal)
CPT/HCPCS: 77067

== ENCOUNTER 2019-01-31 17:46 | Emergency (ER) | payer MEDICARE ==
[~2019-01-31] VITALS: Ht 157.5 cm; Wt 73.5 kg
--- NOTE | 2019-01-31 18:19 | ED Integumentary General ---
General Chief Complaint: Skin/Wound Problems Stated Complaint: RASH ON ARM,ITCHY Nursing Triage Note: Patient reports a itchy rash on her R arm and forehead. patient states she noticed this 2 days ago after moving brush earlier in the week. 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 Exam Limitations: no limitations History of Present Illness Date Seen by Provider: Jan 31, 2019 Time Seen by Provider: 18:18 Allergies and Home Medications Allergies Coded Allergies: Tetracycline (Unverified Allergy, Mild, 10/03/05) Home Medications Amlodipine Besylate 2.5 Mg Tablet, Unknown Dose PO DAILY, (Reported) Hydroxyurea 500 Mg Capsule, 500 MG PO DAILY, (Reported) Meloxicam 7.5 Mg Tablet, 7.5 MG PO DAILY, (Reported) Past Gymiqxw-Oralwb-Dxrczl Hx Patient Social History Alcohol Use: Denies Use Recreational Drug Use: No Smoking Status: Never a Smoker 2nd Hand Smoke Exposure: No Recent Foreign Travel: No Contact w/Someone Who Travel: No Recent Infectious Disease Expo: No Recent Hopitalizations: No Physical Abuse: No Sexual Abuse: No Mistreated: No Fear: No Immunizations Up To Date Tetanus Booster (TDap): Unknown Seasonal Allergies Seasonal Allergies: Yes Past Medical History Surgeries: Yes (BLADDER/COLON) Abdominal, Bladder Surgery, Bowel Surgery, Hysterectomy, Orthopedic Respiratory: No Cardiac: Yes Hypertension Neurological: Yes Headaches /Migraines 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 Genitourinary: No Gastrointestinal: No Musculoskeletal: Yes (CHRONIC BACK PAIN) Arthritis, Fractures Endocrine: No HEENT: No Cancer: No Psychosocial: No Integumentary: No Blood Disorders: Yes (POLYCYTHEMIA VERA) Family Medical History No Pertinent Family Hx Physical Exam Vital Signs Vital Signs - First Documented 01/31/19 17:57 Temp 97.2 Pulse 84 Resp 18 B/P (MAP) 167/80 (109) Pulse Ox 97 Capillary Refill : Less Than 3 Seconds Progress/Results/Core Measures Results/Orders My Orders Orders - KENNEDY CHANG Famotidine Tablet (Pepcid Tablet) (01/31/19 18:29) Prednisone Tablet (Deltasone Tablet) (01/31/19 18:30) Loratadine Tablet (Claritin Tablet) (01/31/19 18:30) Vital Signs/I&O 01/31/19 17:57 Temp 97.2 Pulse 84 Resp 18 B/P (MAP) 167/80 (109) Pulse Ox 97 Blood Pressure Mean: 109 Departure Impression Primary Impression: Contact dermatitis due to poison ximena Disposition: 01 HOME, SELF-CARE Condition: Improved Departure-Patient Inst. Decision time for Depature: 18:34 Referrals: VALENTINA KARIMI MD (PCP/Family) Primary Care Physician Patient Instructions: Contact Dermatitis (DC) Add. Discharge Instructions: All discharge instructions reviewed with patient and/or family. Voiced understanding. Medications as instructed. Claritin vppd-bwl-mpciknl as directed. Benadryl fucg-mod-vwctyod as directed for breakthrough itching. Cool compresses as needed. Follow-up with your primary care provider for recheck if no improvement in symptoms. Return in the emergency department for worsened symptoms or any other concerns. Scripts Famotidine (Pepcid) 20 Mg Tablet 20 MG PO BID PRN, #20 TAB 0 Refills Prov: KENNEDY CHANG 01/31/19 Prednisone (Prednisone) 20 Mg Tab 40 MG PO DAILY, #8 TAB 0 Refills Prov: KENNEDY CHANG 01/31/19 KENNEDY CHANG Jan 31, 2019 18:19
[2019-01-31] MEDS ORDERED: FAMOTIDINE 20 MG (PEPCID) TABLET PO STA (18:29)
[2019-01-31] MEDS ORDERED: LORATADINE (CLARITIN) 10 MG TAB PO ONE (18:30)
[2019-01-31] MEDS ORDERED: predniSONE 20 MG TAB PO ONE (18:30)
[2019-01-31] MEDS ORDERED: PRD20T PO (18:38)
[2019-01-31] MEDS ORDERED: FAMO-119 PO (18:38)
[2019-01-31 19:11] VITALS: BP 167/80
== END 2019-01-31 19:10 | disposition home or self-care (01) ==
LOC: EDUNIT# 17:46 → ER 17:47
DX: L23.7 Allergic contact dermatitis due to plants, except food (principal); I10 Essential (primary) hypertension; G43.909 Migraine, unspecified, not intractable, without status migrainosus; Z88.1 Allergy status to other antibiotic agents; Z90.710 Acquired absence of both cervix and uterus
CPT/HCPCS: 99283

== ENCOUNTER 2019-04-10 08:06 | Outpatient (RCR) | payer MEDICARE ==
[~2019-04-10 08:06] MED LIST changes: +FAMO-119 PO; +PRD20T PO
[2019-04-10 08:46] LABS: ALANINE AMINOTRANSFERASE 32 U/L (0-55); ALBUMIN 4.3 GM/DL (3.2-4.5); ALKALINE PHOSPHATASE 66 U/L (40-136); BILIRUBIN,TOTAL 1.1 MG/DL (0.1-1.0); BUN/CREATININE RATIO 25; CALCIUM 9.4 MG/DL (8.5-10.1); CARBON DIOXIDE 27 MMOL/L (21-32); CHLORIDE 105 MMOL/L (98-107); CREATININE SERUM 0.85 MG/DL (0.60-1.30); GFR ESTIMATED > 60; GLUCOSE 75 MG/DL (70-105); POTASSIUM 4.6 MMOL/L (3.6-5.0); SODIUM 140 MMOL/L (135-145); TOTAL PROTEIN 7.4 GM/DL (6.4-8.2)
== END 2019-06-10 | disposition home or self-care (01) ==
LOC: ONC 08:06
PROVIDERS: ATTEND Internal Medicine Hematology & Oncology
DX: D45 Polycythemia vera (principal); I12.9 Hypertensive chronic kidney disease with stage 1 through stage 4 chronic kidney disease, or unspecified chronic kidney disease; N18.3 Chronic kidney disease, stage 3 (moderate); J45.909 Unspecified asthma, uncomplicated; Z87.891 Personal history of nicotine dependence; Z79.899 Other long term (current) drug therapy
CPT/HCPCS: 36415; 80053; 99213

== ENCOUNTER → 2019-07-09 | Outpatient (CLI) | payer MEDICARE ==
[~2019-07-09] MED LIST changes: -TRAM50TA2 PO; +TRM50T PO
[2019-07-09 15:29] LABS: BASOPHILS % (AUTO) 1 % (0-10); EOSINOPHILS # (AUTO) 0.1 10^3/uL (0.0-0.3); EOSINOPHILS % (AUTO) 2 % (0-10); HEMATOCRIT 39 % (35-52); HEMOGLOBIN 13.6 G/DL (11.5-16.0); LYMPHOCYTES # (AUTO) 1.6 X 10^3 (1.0-4.0); LYMPHOCYTES % (AUTO) 40 % (12-44); MEAN CORPUSCULAR HEMOGLOBIN 38 PG (25-34); MEAN CORPUSCULAR HGB CONC 35 G/DL (32-36); MEAN CORPUSCULAR VOLUME 109 FL (80-99); MEAN PLATELET VOLUME 8.5 FL (7.4-10.4); MONOCYTES # (AUTO) 0.4 X 10^3 (0.0-1.0); MONOCYTES % (AUTO) 11 % (0-12); NEUTROPHILS # (AUTO) 1.9 X 10^3 (1.8-7.8); NEUTROPHILS % (AUTO) 47 % (42-75); PLATELET COUNT 257 10^3/uL (130-400); RED CELL DISTRIBUTION WIDTH 13.9 % (10.0-14.5); WHITE BLOOD COUNT 4.1 10^3/uL (4.3-11.0)
[2019-07-09 15:51] LABS: ALANINE AMINOTRANSFERASE 33 U/L (0-55); ALBUMIN 4.3 GM/DL (3.2-4.5); ALKALINE PHOSPHATASE 73 U/L (40-136); BILIRUBIN,TOTAL 0.6 MG/DL (0.1-1.0); BUN/CREATININE RATIO 27; CARBON DIOXIDE 25 MMOL/L (21-32); CHLORIDE 107 MMOL/L (98-107); CREATININE SERUM 0.89 MG/DL (0.60-1.30); GFR ESTIMATED > 60; GLUCOSE 99 MG/DL (70-105); POTASSIUM 4.3 MMOL/L (3.6-5.0); SODIUM 142 MMOL/L (135-145); TOTAL PROTEIN 7.2 GM/DL (6.4-8.2)
== END ==
LOC: EDSTATUS 06-11 14:38 → ONC 15:20
PROVIDERS: ATTEND Internal Medicine Hematology & Oncology
DX: D45 Polycythemia vera (principal); I12.9 Hypertensive chronic kidney disease with stage 1 through stage 4 chronic kidney disease, or unspecified chronic kidney disease; N18.3 Chronic kidney disease, stage 3 (moderate); J45.909 Unspecified asthma, uncomplicated; Z87.891 Personal history of nicotine dependence; Z79.899 Other long term (current) drug therapy; Z12.31 Encounter for screening mammogram for malignant neoplasm of breast
CPT/HCPCS: 80053; 83615; 85025; 99213

== ENCOUNTER → 2019-10-23 | Outpatient (CLI) | payer MEDICARE, OTHER | LOC: CARD 11:30 | PROVIDERS: ATTEND Internal Medicine Cardiovascular Disease | DX: I10 Essential (primary) hypertension (principal); D45 Polycythemia vera; R06.09 Other forms of dyspnea; Z87.891 Personal history of nicotine dependence | CPT/HCPCS: 93306 ==

== ENCOUNTER → 2019-10-26 | Outpatient (CLI) | payer MEDICARE, OTHER ==
[~2019-10-26] VITALS: Ht 157 cm; Wt 75.0 kg
[~2019-10-26] MED LIST changes: +CATHETER FLUSH 10 ML SYR IV PRN; +REGADENOSON 0.4 MG/5 ML SYR (LEXISCAN) IV ONE
[2019-10-26 08:46] VITALS: BP 149/82
--- NOTE | 2019-10-26 14:05 | STRESS TEST ---
DATE OF SERVICE: LEXISCAN MYOVIEW STRESS TEST REPORT REFERRING PHYSICIAN: Page Flores MD and Dr. Brown. Baseline heart rate 71, baseline blood pressure 116/81. Baseline EKG is sinus rhythm with no ischemic changes. In summary, the patient was injected with 10.84 mCi of technetium-99 Myoview and the resting images were obtained. Then, the patient received 0.4 mg of Lexiscan followed by 32.8 mCi of technetium-99 Myoview. Throughout the test, there were no EKG changes. The resting and stress images were reviewed and compared in the short axis, horizontal long axis, and vertical long axis views. Review of the images showed breast attenuation with mild decreased uptake involving the inferolateral wall with subtle reversibility. SSS is 6, SDS 4, TID value 1.0. On the gated images, the left ventricle appeared to be in normal size with normal contractility. Calculated ejection fraction 81%. CONCLUSIONS: 1. The patient tolerated Lexiscan well. 2. Extracardiac attenuation affecting the quality of the images. Overall, there is no significant ischemia or infarction on SPECT images. 3. Normal left ventricular size and systolic function. Calculated ejection fraction 81%. 4. Overall, the patient is considered at intermediate risk for perioperative cardiovascular complications decision regarding the surgery, risks versus benefits is deferred to the surgeon. 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
== END ==
LOC: CARD 07:19
PROVIDERS: ATTEND Internal Medicine Cardiovascular Disease
DX: I10 Essential (primary) hypertension (principal); D45 Polycythemia vera; R06.09 Other forms of dyspnea; Z87.891 Personal history of nicotine dependence
CPT/HCPCS: 78452; 93017

== ENCOUNTER → 2019-11-10 | Outpatient (CLI) | payer MEDICARE, OTHER ==
[~2019-11-10] MED LIST changes: -CATHETER FLUSH 10 ML SYR IV PRN; -REGADENOSON 0.4 MG/5 ML SYR (LEXISCAN) IV ONE
[2019-11-10 10:52] LABS: BASOPHILS # (AUTO) 0.1 10^3/uL (0.0-0.1); BASOPHILS % (AUTO) 1 % (0-10); EOSINOPHILS # (AUTO) 0.1 10^3/uL (0.0-0.3); EOSINOPHILS % (AUTO) 3 % (0-10); HEMATOCRIT 40 % (35-52); HEMOGLOBIN 13.5 G/DL (11.5-16.0); LYMPHOCYTES # (AUTO) 1.2 X 10^3 (1.0-4.0); LYMPHOCYTES % (AUTO) 27 % (12-44); MEAN CORPUSCULAR HGB CONC 34 G/DL (32-36); MEAN CORPUSCULAR VOLUME 107 FL (80-99); MEAN PLATELET VOLUME 8.3 FL (7.4-10.4); MONOCYTES # (AUTO) 0.4 X 10^3 (0.0-1.0); MONOCYTES % (AUTO) 9 % (0-12); NEUTROPHILS # (AUTO) 2.6 X 10^3 (1.8-7.8); NEUTROPHILS % (AUTO) 59 % (42-75); PLATELET COUNT 341 10^3/uL (130-400); WHITE BLOOD COUNT 4.4 10^3/uL (4.3-11.0)
[2019-11-10 10:53] LABS: MEAN CORPUSCULAR HEMOGLOBIN 36 PG (25-34)
[2019-11-10 11:08] LABS: ALANINE AMINOTRANSFERASE 21 U/L (0-55); ALBUMIN 4.1 GM/DL (3.2-4.5); ALKALINE PHOSPHATASE 99 U/L (40-136); BILIRUBIN,TOTAL 0.6 MG/DL (0.1-1.0); BUN/CREATININE RATIO 27; CALCIUM 9.7 MG/DL (8.5-10.1); CARBON DIOXIDE 28 MMOL/L (21-32); CHLORIDE 105 MMOL/L (98-107); CREATININE SERUM 0.83 MG/DL (0.60-1.30); GFR ESTIMATED > 60; GLUCOSE 96 MG/DL (70-105); POTASSIUM 4.7 MMOL/L (3.6-5.0); SODIUM 141 MMOL/L (135-145); TOTAL PROTEIN 7.6 GM/DL (6.4-8.2)
== END ==
LOC: ONC 10:20
PROVIDERS: ATTEND Internal Medicine Hematology & Oncology
DX: D45 Polycythemia vera (principal)
CPT/HCPCS: 80053; 83615; 85025; 99213

== ENCOUNTER → 2020-03-04 | Outpatient (CLI) | payer MEDICARE, OTHER ==
[2020-03-04 08:45] LABS: BASOPHILS # (AUTO) 0.1 10^3/uL (0.0-0.1); BASOPHILS % (AUTO) 1 % (0-10); EOSINOPHILS # (AUTO) 0.2 10^3/uL (0.0-0.3); EOSINOPHILS % (AUTO) 4 % (0-10); HEMATOCRIT 42 % (35-52); HEMOGLOBIN 14.7 G/DL (11.5-16.0); LYMPHOCYTES # (AUTO) 1.6 X 10^3 (1.0-4.0); LYMPHOCYTES % (AUTO) 39 % (12-44); MEAN CORPUSCULAR HEMOGLOBIN 37 PG (25-34); MEAN CORPUSCULAR HGB CONC 35 G/DL (32-36); MEAN CORPUSCULAR VOLUME 106 FL (80-99); MEAN PLATELET VOLUME 8.5 FL (7.4-10.4); MONOCYTES # (AUTO) 0.5 X 10^3 (0.0-1.0); MONOCYTES % (AUTO) 11 % (0-12); NEUTROPHILS # (AUTO) 1.9 X 10^3 (1.8-7.8); NEUTROPHILS % (AUTO) 46 % (42-75); PLATELET COUNT 250 10^3/uL (130-400); WHITE BLOOD COUNT 4.3 10^3/uL (4.3-11.0)
[2020-03-04 09:08] LABS: ALANINE AMINOTRANSFERASE 25 U/L (0-55); ALBUMIN 4.3 GM/DL (3.2-4.5); ALKALINE PHOSPHATASE 71 U/L (40-136); BILIRUBIN,TOTAL 1.1 MG/DL (0.1-1.0); BUN/CREATININE RATIO 26; CALCIUM 9.5 MG/DL (8.5-10.1); CARBON DIOXIDE 27 MMOL/L (21-32); CHLORIDE 104 MMOL/L (98-107); CREATININE SERUM 0.81 MG/DL (0.60-1.30); GFR ESTIMATED > 60; GLUCOSE 92 MG/DL (70-105); POTASSIUM 4.6 MMOL/L (3.6-5.0); SODIUM 140 MMOL/L (135-145); TOTAL PROTEIN 7.3 GM/DL (6.4-8.2)
== END ==
LOC: ONC 08:38
PROVIDERS: ATTEND Internal Medicine Hematology & Oncology
DX: C92.10 Chronic myeloid leukemia, BCR/ABL-positive, not having achieved remission (principal); D45 Polycythemia vera; Z79.899 Other long term (current) drug therapy; Z90.710 Acquired absence of both cervix and uterus; Z98.890 Other specified postprocedural states
CPT/HCPCS: 80053; 83615; 85025; G0463; 99213

== ENCOUNTER → 2020-03-15 | Outpatient (CLI) | payer MEDICARE, OTHER ==
--- NOTE | 2020-03-15 09:34 | Diagnostic Imaging Report ---
INDICATION: Postmenopausal state. COMPARISON: None available FINDINGS: AP Spine L1-L4: [BMD (g/cm2): 1.357] [T-Score: 1.3] [Z-Score: 2.6] [BMD Previous: na] [BMD % Change: na] LT Hip Neck: [BMD (g/cm2): 0.891] [T-Score: -1.1] [Z-Score: 0.4] LT Hip Total: [BMD (g/cm2):1.021] [T-Score:0.1] [Z-Score: 1.3] [BMD Previous: na] [BMD % Change: na] RT Hip Neck: [BMD (g/cm2):0.862] [T-Score:-1.3] [Z-Score:0.2] RT Hip Total: [BMD (g/cm2):1.007] [T-score:0.0] [Z-Score:1.2] [BMD Previous:na] [BMD % Change:na] *Indicates significant change from prior examination based on 95% confidence level. World Health Organization criteria for BMD interpretation classify patients as Normal (T-score at or above -1.0), Osteopenic (T-score between -1.0 and -2.5) or Osteoporotic (T-score at or below -2.5). LIMITATIONS AND MODIFICATION: None. FRACTURE RISK (FRAX SCORE): The ten year probability of (%): Major Osteoporotic Fracture: [9.0] Hip Fracture: [1.0] IMPRESSION: 1. Osteopenia (Low bone mass). 2. Baseline examination. 3. See below National Osteoporosis Foundation guidelines on when to potentially initiate pharmacologic therapy. Based on the National Osteoporosis Foundation Guidelines, pharmacologic treatment should be initiated in any of the following, unless clinical conditions suggest otherwise: * Any patient with prior fragility fracture of the hip or vertebrae. A spine fracture indicates 5X risk for subsequent spine fracture and 2X risk for subsequent hip fracture. * Osteoporosis (T-score <-2.5). * Postmenopausal women and men age 50 and older with low bone mass/osteopenia (T-score between -1.0 and -2.5) by DXA and 10-year major osteoporotic fracture greater than 20% or a 10-year probability of hip fracture greater than 3%. These fracture risks are supplied above in the FRAX score, if applicable. * Clinician judgement and/or patient preferences may indicate treatment for people with 10-year fracture probabilities above or below these levels. Dictated by: Dictated on workstation # [id number]
== END ==
LOC: RAD 09:00
PROVIDERS: ATTEND Family Medicine
DX: M85.89 Other specified disorders of bone density and structure, multiple sites (principal); Z78.0 Asymptomatic menopausal state
CPT/HCPCS: 77080

== ENCOUNTER → 2020-08-02 | Outpatient (CLI) | payer MEDICARE ==
[2020-08-02 10:02] LABS: BASOPHILS # (AUTO) 0.1 10^3/uL (0.0-0.1); BASOPHILS % (AUTO) 2 % (0-10); EOSINOPHILS # (AUTO) 0.1 10^3/uL (0.0-0.3); EOSINOPHILS % (AUTO) 2 % (0-10); HEMATOCRIT 46 % (35-52); HEMOGLOBIN 15.6 g/dL (11.5-16.0); LYMPHOCYTES # (AUTO) 1.9 10^3/uL (1.0-4.0); LYMPHOCYTES % (AUTO) 40 % (12-44); MEAN CORPUSCULAR HEMOGLOBIN 36 pg (25-34); MEAN CORPUSCULAR HGB CONC 34 g/dL (32-36); MEAN CORPUSCULAR VOLUME 106 fL (80-99); MEAN PLATELET VOLUME 8.7 fL (9.0-12.2); MONOCYTES # (AUTO) 0.4 10^3/uL (0.0-1.0); MONOCYTES % (AUTO) 10 % (0-12); NEUTROPHILS # (AUTO) 2.1 10^3/uL (1.8-7.8); NEUTROPHILS % (AUTO) 47 % (42-75); PLATELET COUNT 285 10^3/uL (130-400); WHITE BLOOD COUNT 4.6 10^3/uL (4.3-11.0)
[2020-08-02 10:25] LABS: ALANINE AMINOTRANSFERASE 26 U/L (0-55); ALKALINE PHOSPHATASE 83 U/L (40-136); BILIRUBIN,TOTAL 0.7 MG/DL (0.1-1.0); BUN/CREATININE RATIO 26; CALCIUM 9.3 MG/DL (8.5-10.1); CARBON DIOXIDE 25 MMOL/L (21-32); CHLORIDE 108 MMOL/L (98-107); CREATININE SERUM 0.86 MG/DL (0.60-1.30); GFR ESTIMATED > 60; GLUCOSE 110 MG/DL (70-105); POTASSIUM 4.3 MMOL/L (3.6-5.0); SODIUM 142 MMOL/L (135-145); TOTAL PROTEIN 7.3 GM/DL (6.4-8.2)
== END ==
LOC: ONC 09:48
PROVIDERS: ATTEND Internal Medicine Hematology & Oncology
DX: D45 Polycythemia vera (principal); I10 Essential (primary) hypertension
CPT/HCPCS: 80053; 83615; 85025; G0463; 99213

== ENCOUNTER → 2020-08-16 | Outpatient (CLI) | payer MEDICARE ==
--- NOTE | 2020-08-16 13:22 | Diagnostic Imaging Report ---
Indication: Routine screening. Comparison is made with prior mammogram 11/11/2018 and 08/29/2017. 2-D and 3-D bilateral screening mammography was performed with CAD. Scattered fibroglandular densities are identified bilaterally. A parenchymal pattern is stable. No mass or malignant appearing microcalcifications are seen. Axillae are unremarkable. IMPRESSION: BI-RADS Category 1 No mammographic features suspicious for malignancy are parenchymal pattern ACR BI-RADS Category 1: Negative. Result letter will be mailed to the patient. Note: At least 10% of breast cancer is not imaged by mammography. Dictated by: Dictated on workstation # [id number]
== END ==
LOC: RAD 11:06
PROVIDERS: ATTEND Nurse Practitioner Adult Health
DX: Z12.31 Encounter for screening mammogram for malignant neoplasm of breast (principal)
CPT/HCPCS: 77063; 77067

== ENCOUNTER 2020-10-03 13:24 | Outpatient (RCR) | payer MEDICARE ==
[2020-10-03 13:36] LABS: BASOPHILS # (AUTO) 0.1 10^3/uL (0.0-0.1); BASOPHILS % (AUTO) 2 % (0-10); EOSINOPHILS # (AUTO) 0.2 10^3/uL (0.0-0.3); EOSINOPHILS % (AUTO) 4 % (0-10); HEMATOCRIT 46 % (35-52); HEMOGLOBIN 15.7 g/dL (11.5-16.0); LYMPHOCYTES # (AUTO) 1.4 10^3/uL (1.0-4.0); LYMPHOCYTES % (AUTO) 29 % (12-44); MEAN CORPUSCULAR HEMOGLOBIN 36 pg (25-34); MEAN CORPUSCULAR HGB CONC 34 g/dL (32-36); MEAN CORPUSCULAR VOLUME 105 fL (80-99); MEAN PLATELET VOLUME 8.7 fL (9.0-12.2); MONOCYTES # (AUTO) 0.6 10^3/uL (0.0-1.0); MONOCYTES % (AUTO) 12 % (0-12); NEUTROPHILS # (AUTO) 2.6 10^3/uL (1.8-7.8); NEUTROPHILS % (AUTO) 54 % (42-75); PLATELET COUNT 278 10^3/uL (130-400); WHITE BLOOD COUNT 4.8 10^3/uL (4.3-11.0)
== END 2021-01-01 | disposition home or self-care (01) ==
LOC: ONC 13:24
PROVIDERS: ATTEND Internal Medicine Hematology & Oncology
DX: D45 Polycythemia vera (principal); J45.909 Unspecified asthma, uncomplicated; I12.9 Hypertensive chronic kidney disease with stage 1 through stage 4 chronic kidney disease, or unspecified chronic kidney disease; N18.30 Chronic kidney disease, stage 3 unspecified; Z79.899 Other long term (current) drug therapy
CPT/HCPCS: 85025; G0463; 99213

== ENCOUNTER 2021-01-03 10:03 | Outpatient (RCR) | payer MEDICARE ==
[2021-01-03 10:28] LABS: BASOPHILS % (AUTO) 1 % (0-10); EOSINOPHILS # (AUTO) 0.1 10^3/uL (0.0-0.3); EOSINOPHILS % (AUTO) 3 % (0-10); HEMATOCRIT 47 % (35-52); HEMOGLOBIN 16.1 g/dL (11.5-16.0); LYMPHOCYTES # (AUTO) 1.9 X 10^3 (1.0-4.0); LYMPHOCYTES % (AUTO) 40 % (12-44); MEAN CORPUSCULAR HEMOGLOBIN 36 pg (25-34); MEAN CORPUSCULAR HGB CONC 35 g/dL (32-36); MEAN CORPUSCULAR VOLUME 105 fL (80-99); MEAN PLATELET VOLUME 8.4 fL (9.0-12.2); MONOCYTES # (AUTO) 0.5 X 10^3 (0.0-1.0); MONOCYTES % (AUTO) 10 % (0-12); NEUTROPHILS # (AUTO) 2.2 X 10^3 (1.8-7.8); NEUTROPHILS % (AUTO) 47 % (42-75); PLATELET COUNT 260 10^3/uL (130-400); WHITE BLOOD COUNT 4.7 10^3/uL (4.3-11.0)
[2021-01-03 10:49] LABS: ALBUMIN 4.1 GM/DL (3.2-4.5); BILIRUBIN,TOTAL 0.9 MG/DL (0.1-1.0); CALCIUM 9.4 MG/DL (8.5-10.1); CREATININE SERUM 0.99 MG/DL (0.60-1.30); POTASSIUM 5.4 MMOL/L (3.6-5.0); TOTAL PROTEIN 7.2 GM/DL (6.4-8.2)
== END 2021-01-11 08:35 | disposition home or self-care (01) ==
LOC: ONC 10:03
PROVIDERS: ATTEND Internal Medicine Hematology & Oncology
DX: D45 Polycythemia vera (principal); J45.909 Unspecified asthma, uncomplicated; I12.9 Hypertensive chronic kidney disease with stage 1 through stage 4 chronic kidney disease, or unspecified chronic kidney disease; N18.30 Chronic kidney disease, stage 3 unspecified; Z79.899 Other long term (current) drug therapy; Z98.890 Other specified postprocedural states
CPT/HCPCS: 80053; 81270; 83615; 85025; G0463; 99213

== ENCOUNTER → 2021-01-03 | Outpatient (CLI) | payer MEDICARE ==
[2021-01-03 10:32] LABS: BASOPHILS # (AUTO) 0.1 10^3/uL (0.0-0.1); BASOPHILS % (AUTO) 1 % (0-10); EOSINOPHILS # (AUTO) 0.1 10^3/uL (0.0-0.3); EOSINOPHILS % (AUTO) 2 % (0-10); HEMATOCRIT 46 % (35-52); LYMPHOCYTES # (AUTO) 1.7 X 10^3 (1.0-4.0); LYMPHOCYTES % (AUTO) 38 % (12-44); MEAN CORPUSCULAR HEMOGLOBIN 36 pg (25-34); MEAN CORPUSCULAR HGB CONC 35 g/dL (32-36); MEAN CORPUSCULAR VOLUME 105 fL (80-99); MEAN PLATELET VOLUME 8.6 fL (9.0-12.2); MONOCYTES # (AUTO) 0.5 X 10^3 (0.0-1.0); MONOCYTES % (AUTO) 11 % (0-12); NEUTROPHILS # (AUTO) 2.2 X 10^3 (1.8-7.8); NEUTROPHILS % (AUTO) 47 % (42-75); PLATELET COUNT 265 10^3/uL (130-400); WHITE BLOOD COUNT 4.6 10^3/uL (4.3-11.0)
[2021-01-03 10:52] LABS: ALBUMIN 4.1 GM/DL (3.2-4.5); BILIRUBIN,TOTAL 0.9 MG/DL (0.1-1.0); CALCIUM 9.3 MG/DL (8.5-10.1); CREATININE SERUM 0.98 MG/DL (0.60-1.30); POTASSIUM 5.4 MMOL/L (3.6-5.0); TOTAL PROTEIN 7.2 GM/DL (6.4-8.2)
== END ==
LOC: LAB 10:07
PROVIDERS: ATTEND Family Medicine
DX: Z00.00 Encounter for general adult medical examination without abnormal findings (principal); I10 Essential (primary) hypertension; Z79.899 Other long term (current) drug therapy
CPT/HCPCS: 36415; 80053; 80061; 83036; 84443; 85025

== ENCOUNTER → 2021-01-17 | Outpatient (CLI) | payer MEDICARE ==
[2021-01-17 11:48] LABS: MAGNESIUM 2.2 MG/DL (1.6-2.4); POTASSIUM 4.6 MMOL/L (3.6-5.0)
== END ==
LOC: LAB 11:10
PROVIDERS: ATTEND Family Medicine
DX: E87.5 Hyperkalemia (principal); I10 Essential (primary) hypertension
CPT/HCPCS: 36415; 83735; 84132

== ENCOUNTER 2021-02-06 10:21 | Outpatient (RCR) | payer MEDICARE | END 2021-03-16 09:54 | disposition home or self-care (01) | PROVIDERS: ATTEND Family Medicine | DX: K62.3 Rectal prolapse (principal); I10 Essential (primary) hypertension ==

== ENCOUNTER 2021-04-04 14:13 | Outpatient (RCR) | payer MEDICARE ==
[~2021-04-04 14:13] MED LIST changes: +CYCL10TA25 PO; -CYCL10TA9 PO
[2021-04-04 14:28] LABS: BASOPHILS # (AUTO) 0.1 10^3/uL (0.0-0.1); BASOPHILS % (AUTO) 2 % (0-10); EOSINOPHILS # (AUTO) 0.1 10^3/uL (0.0-0.3); EOSINOPHILS % (AUTO) 3 % (0-10); HEMATOCRIT 45 % (35-52); HEMOGLOBIN 15.4 g/dL (11.5-16.0); LYMPHOCYTES # (AUTO) 1.7 10^3/uL (1.0-4.0); LYMPHOCYTES % (AUTO) 35 % (12-44); MEAN CORPUSCULAR HEMOGLOBIN 37 pg (25-34); MEAN CORPUSCULAR HGB CONC 34 g/dL (32-36); MEAN CORPUSCULAR VOLUME 108 fL (80-99); MEAN PLATELET VOLUME 8.6 fL (9.0-12.2); MONOCYTES # (AUTO) 0.5 10^3/uL (0.0-1.0); MONOCYTES % (AUTO) 10 % (0-12); NEUTROPHILS # (AUTO) 2.4 10^3/uL (1.8-7.8); NEUTROPHILS % (AUTO) 50 % (42-75); PLATELET COUNT 311 10^3/uL (130-400); WHITE BLOOD COUNT 4.8 10^3/uL (4.3-11.0)
[2021-04-04 14:48] LABS: CALCIUM 9.6 MG/DL (8.5-10.1); CREATININE SERUM 0.85 MG/DL (0.60-1.30); POTASSIUM 4.2 MMOL/L (3.6-5.0); TOTAL PROTEIN 7.3 GM/DL (6.4-8.2)
== END 2021-06-23 | disposition home or self-care (01) ==
LOC: ONC 14:13
PROVIDERS: ATTEND Internal Medicine Hematology & Oncology
DX: D45 Polycythemia vera (principal); I10 Essential (primary) hypertension; E66.9 Obesity, unspecified; Z79.899 Other long term (current) drug therapy
CPT/HCPCS: 80053; 83615; 85025; G0463; 99213

== ENCOUNTER 2021-06-27 12:55 | Outpatient (RCR) | payer MEDICARE ==
[2021-06-26 15:15] LABS: BASOPHILS # (AUTO) 0.1 10^3/uL (0.0-0.1); BASOPHILS % (AUTO) 2 % (0-10); EOSINOPHILS # (AUTO) 0.1 10^3/uL (0.0-0.3); EOSINOPHILS % (AUTO) 2 % (0-10); HEMATOCRIT 51 % (35-52); HEMOGLOBIN 16.7 g/dL (11.5-16.0); LYMPHOCYTES # (AUTO) 2.1 10^3/uL (1.0-4.0); LYMPHOCYTES % (AUTO) 40 % (12-44); MEAN CORPUSCULAR HEMOGLOBIN 34 pg (25-34); MEAN CORPUSCULAR HGB CONC 33 g/dL (32-36); MEAN CORPUSCULAR VOLUME 103 fL (80-99); MEAN PLATELET VOLUME 9.2 fL (9.0-12.2); MONOCYTES # (AUTO) 0.6 10^3/uL (0.0-1.0); MONOCYTES % (AUTO) 11 % (0-12); NEUTROPHILS # (AUTO) 2.3 10^3/uL (1.8-7.8); NEUTROPHILS % (AUTO) 45 % (42-75); PLATELET COUNT 309 10^3/uL (130-400); WHITE BLOOD COUNT 5.2 10^3/uL (4.3-11.0)
[2021-06-26 15:34] LABS: ALBUMIN 4.2 GM/DL (3.2-4.5); BILIRUBIN,TOTAL 0.7 MG/DL (0.1-1.0); CALCIUM 9.8 MG/DL (8.5-10.1); CREATININE SERUM 0.98 MG/DL (0.60-1.30); POTASSIUM 4.6 MMOL/L (3.6-5.0); TOTAL PROTEIN 7.3 GM/DL (6.4-8.2)
== END 2021-07-24 | disposition home or self-care (01) ==
LOC: ONC 12:55
PROVIDERS: ATTEND Internal Medicine Hematology & Oncology
DX: D45 Polycythemia vera (principal); D58.2 Other hemoglobinopathies; I12.9 Hypertensive chronic kidney disease with stage 1 through stage 4 chronic kidney disease, or unspecified chronic kidney disease; N18.30 Chronic kidney disease, stage 3 unspecified; J45.909 Unspecified asthma, uncomplicated; E66.9 Obesity, unspecified; Z98.890 Other specified postprocedural states
CPT/HCPCS: 80053; 82728; 83615; 85025; G0463; 99195; 99213

== ENCOUNTER → 2021-08-21 | Outpatient (CLI) | payer MEDICARE ==
--- NOTE | 2021-08-21 11:48 | Diagnostic Imaging Report ---
INDICATION: Routine screening. Comparison is made with prior mammogram 08/16/2020 and 11/11/2018. 2-D and 3-D bilateral screening mammography was performed with CAD. Scattered fibroglandular densities are identified bilaterally. The parenchymal pattern is stable. No mass or malignant-appearing microcalcifications are seen. Axillae are unremarkable. IMPRESSION: No mammographic features suspicious for malignancy are identified. BI-RADS Category 1 ACR BI-RADS Category 1: Negative. Result letter will be mailed to the patient. Note: At least 10% of breast cancer is not imaged by mammography. Dictated by: Dictated on workstation # [id number]
== END ==
LOC: RAD 08:30
PROVIDERS: ATTEND Family Medicine
DX: Z12.31 Encounter for screening mammogram for malignant neoplasm of breast (principal)
CPT/HCPCS: 77063; 77067

== ENCOUNTER → 2022-03-19 | Outpatient (CLI) | payer MEDICARE ==
--- NOTE | 2022-03-19 08:58 | Diagnostic Imaging Report ---
PROCEDURE: CT head without contrast. TECHNIQUE: Multiple contiguous axial images were obtained through the brain without the use of intravenous contrast. Auto Exposure Controls were utilized during the CT exam to meet ALARA standards for radiation dose reduction. INDICATION: Right eye drooping. FINDINGS: There is some prominence of the ventricles and sulci, consistent with the patient's age. No sulcal effacement is identified. There is no midline shift. No acute intra-axial or extra-axial hemorrhage is detected. Cisterns are patent. The visualized paranasal sinuses are clear. IMPRESSION: No acute intracranial process is detected. Dictated by: Dictated on workstation # [id number]
== END ==
LOC: RAD 08:14
PROVIDERS: ATTEND Family Medicine
DX: H02.401 Unspecified ptosis of right eyelid (principal)
CPT/HCPCS: 70450